=== PATIENT | female | born 1985 | race Caucasian/White ===

== ENCOUNTER 2020-10-25 19:41 | Emergency (ER) | payer BC ==
[2020-10-25] MEDS ORDERED: Sodium Chloride 0.9% 10 ML Syringe FLUSH PRN (19:52)
--- NOTE | 2020-10-25 20:14 | EDM.PDOC ---
ED HPI GENERAL MEDICAL PROBLEM - General Chief Complaint: Syncope Stated Complaint: LOSS OF CONSCIOUSNESS Time Seen by Provider: 10/25/20 20:00 Source of Information: Reports: Patient, Family History Limitations: Reports: No Limitations - History of Present Illness INITIAL COMMENTS - FREE TEXT/NARRATIVE: Tricia is a 35-year-old female presenting to the ED for evaluation of syncopal episode. The patient underwent an abdominal plasty several weeks ago and today was sitting at the table feeling quite bloated, passing gas, and appears that she may have had a vasovagal syncopal episode witnessed by her . Patient reportedly felt tight across the abdomen while passing gas and blacked out. The says she had loss of bladder control. There was no motor activity or postictal period to suggest this being a seizure. She did become slightly diaphoretic but there was no vomiting. She did reportedly have a large bowel movement after the syncopal episode. Her surgical history is the patient underwent a abdominoplasty with liposuction and a breast lift done at the [facility] 3 weeks ago. Her recovery has been complicated by course of cephalexin for postop infection and methylprednisolone. In addition she suffers from some constipation related to her opiate pain medication. She is recently been started on probiotics to help rebuild her normal gut mallory. She has been dealing with much more flatus as a result. The incident occurred around 1830 hrs. tonight. She did feel a little foggy and had a slight headache after the incident but is fully recovered since. - Related Data Allergies Allergy/AdvReac Type Severity Reaction Status Date / Time Sulfa (Sulfonamide Allergy Hives Verified 10/25/20 20:01 Antibiotics) Home Meds: Home Meds NK [No Known Home Meds] 10/25/20 [History] ED ROS GENERAL - Review of Systems Review Of Systems: See Below Constitutional: Reports: Diaphoresis HEENT: Reports: No Symptoms Respiratory: Reports: No Symptoms Cardiovascular: Reports: Syncope Endocrine: Reports: No Symptoms GI/Abdominal: Reports: Abdominal Pain, Decreased Appetite, Distension, Flatus : Reports: Incontinence (During the syncopal episode) Musculoskeletal: Reports: No Symptoms Skin: Reports: No Symptoms Neurological: Reports: Confusion (For a brief time after the syncopal episode. The patient did reportedly continue to give her commands during the episode and therefore did not completely go out.), Headache (Slight headache following the syncopal episode this is subsequently cleared now.), Syncope Psychiatric: Reports: No Symptoms Hematologic/Lymphatic: Reports: No Symptoms Immunologic: Reports: No Symptoms - Physical Exam Exam: See Below Exam Limited By: No Limitations General Appearance: Alert, WD/WN, No Apparent Distress Eye Exam: Bilateral Eye: EOMI, PERRL Nose: Normal Inspection, Normal Mucosa, No Blood Throat/Mouth: Normal Inspection, Normal Lips, Normal Teeth, Normal Gums, Normal Oropharynx, Normal Voice, No Airway Compromise Head Exam: Atraumatic, Normocephalic Neck: Normal Inspection, Supple, Non-Tender, Full Range of Motion. No: Lymphadenopathy (R), Lymphadenopathy (L) Respiratory/Chest: No Respiratory Distress, Lungs Clear, Normal Breath Sounds Cardiovascular: Normal Peripheral Pulses, Regular Rate, Rhythm, No Murmur GI/Abdominal: Normal Bowel Sounds, Soft, Tender (Mild generalized tenderness to palpation without guarding or rebound). No: Guarding, Rigid, Rebound Neuro Exam (Abbreviated): Alert, Oriented, CN II-XII Intact, Normal Cognition, No Motor/Sensory Deficits Psychiatric: Normal Affect, Normal Mood Skin Exam: Warm, Dry, Intact, Normal Color #1 Interpretation EKG Date: 10/25/20 Time: 20:15 Rhythm: NSR Rate (Beats/Min): 77 [place]: Normal P-Wave: Present QRS: Normal ST-T: Normal QT: Normal Comparison: NA - No Prior EKG Course - Vital Signs Last Recorded V/S: Last Vital Signs Temp 36.3 C 10/25/20 20:11 Pulse 78 10/25/20 20:11 Resp 14 10/25/20 20:11 BP 126/76 10/25/20 20:11 Pulse Ox 96 10/25/20 20:11 - Orders/Labs/Meds Orders: Active Orders 24 hr Category Date Time Status EKG Documentation Completion [RC] ASDIRECTED Care 10/25/20 19:53 Active Sodium Chloride 0.9% [Saline Flush] Med 10/25/20 19:52 Active 10 ml FLUSH ASDIRECTED PRN Saline Lock Insert [OM.PC] Routine Oth 10/25/20 19:52 Ordered EKG 12 Lead [EK] Routine Ther 10/25/20 19:52 Ordered Medication Orders Sodium Chloride (Saline Flush) 10 ml FLUSH ASDIRECTED PRN PRN Reason: Keep Vein Open Labs: Laboratory Tests 10/25/20 10/25/20 Range/Units 20:08 20:08 WBC 8.9 (4.5-11.0) K/uL RBC 4.05 (3.30-5.50) M/uL Hgb 11.9 L (12.0-15.0) g/dL Hct 39.0 (36.0-48.0) % MCV 96 (80-98) fL MCH 29 (27-31) pg MCHC 31 L (32-36) % Plt Count 460 H (150-400) K/uL Neut % (Auto) 70 H (36-66) % Lymph % (Auto) 22 L (24-44) % Bland % (Auto) 5 (2-6) % Eos % (Auto) 3 (2-4) % Baso % (Auto) 1 (0-1) % Sodium 141 (140-148) mmol/L Potassium 4.2 (3.6-5.2) mmol/L Chloride 104 (100-108) mmol/L Carbon Dioxide 28 (21-32) mmol/L Anion Gap 9.2 (5.0-14.0) mmol/L BUN 18 (7-18) mg/dL Creatinine 0.8 (0.6-1.0) mg/dL Est Cr Clr Drug Dosing 83.95 mL/min Estimated GFR (MDRD) > 60 (>60) Glucose 137 H (74-106) mg/dL Calcium 8.7 (8.5-10.1) mg/dL Total Bilirubin 0.1 L (0.2-1.0) mg/dL AST 11 L (15-37) U/L ALT 26 (12-78) U/L Alkaline Phosphatase 47 (46-116) U/L Troponin I < 0.017 (0.000-0.056) ng/mL Total Protein 6.4 (6.4-8.2) g/dL Albumin 3.4 (3.4-5.0) g/dL Globulin 3.0 (2.3-3.5) g/dL Albumin/Globulin Ratio 1.1 L (1.2-2.2) Meds: Medications Generic Name Dose Route Start Last Admin Trade Name Freq PRN Reason Stop Dose Admin Sodium Chloride 10 ml 10/25/20 19:52 Saline Flush FLUSH ASDIRECTED PRN Keep Vein Open - Re-Assessments/Exams Free Text/Narrative Re-Assessment/Exam: 10/25/20 21:02 EKG and labs were reviewed. There is no significant abnormalities. Again this he appears to be vasovagal syncope mediated by the gastric distention caused by the flatus. At this time the patient is suitable for discharge home in satisfactory condition. All questions were answered prior to discharge. Departure - Departure Time of Disposition: 21:03 Disposition: Home, Self-Care 01 Clinical Impression: Vasovagal syncope, Excessive flatus - Discharge Information *PRESCRIPTION DRUG MONITORING PROGRAM REVIEWED*: Not Applicable *COPY OF PRESCRIPTION DRUG MONITORING REPORT IN PATIENT VANDANA: Not Applicable Instructions: Near-Syncope, [id number] Referrals: Marisa Quinones BUNDLER [Primary Care Provider] - Forms: ED Department Discharge Care Plan Goals: I would recommend taking Di-Gel, Gas-X, Gaviscon, or Maalox which are simethicone-based medications that will help break up the gas. This is likely what mediated your vasovagal episode. Because of the recent change in your anish rointestinal mallory, you may be more susceptible to lactose intolerance at this time. If the bloating and flatus continue to be a problem, it may be worthwhile doing a dietary diary to see if there is any particular offender contributing to your symptoms. Your labs and EKG today are unremarkable. Based on the description given this was likely a vasovagal syncopal episode due to gastrointestinal distress. Sepsis Event Note (ED) - Focused Exam Vital Signs: Vital Signs Temp Pulse Resp BP Pulse Ox 10/25/20 20:11 36.3 C 78 14 126/76 96 - Problem List & Annotations (1) Vasovagal syncope SNOMED Code(s): 904203819 Code(s): R55 - SYNCOPE AND COLLAPSE Status: Acute Current Visit: Yes (2) Excessive flatus SNOMED Code(s): 98932498 Code(s): R14.3 - FLATULENCE Status: Acute Current Visit: Yes - Problem List Review Problem List Initiated/Reviewed/Updated: Yes - My Orders Last 24 Hours: My Active Orders 10/25/20 19:52 Sodium Chloride 0.9% [Saline Flush] 10 ml FLUSH ASDIRECTED PRN Saline Lock Insert [OM.PC] Routine EKG 12 Lead [EK] Routine 10/25/20 19:53 EKG Documentation Completion [RC] ASDIRECTED - Assessment/Plan Last 24 Hours: My Active Orders 10/25/20 19:52 Sodium Chloride 0.9% [Saline Flush] 10 ml FLUSH ASDIRECTED PRN Saline Lock Insert [OM.PC] Routine EKG 12 Lead [EK] Routine 10/25/20 19:53 EKG Documentation Completion [RC] ASDIRECTED
== END 2020-10-25 21:11 | disposition home or self-care (01) ==
LOC: JP.ED 19:41
DX: R55 Syncope and collapse (principal); R14.3 Flatulence; Z88.2 Allergy status to sulfonamides
CPT/HCPCS: 36415; 80053; 84484; 85025; 93005; 93010; 99283; 99284-25